=== PATIENT | female | born 1990 | race Caucasian/White ===

== ENCOUNTER 2017-02-03 00:49 | Emergency (ER) | payer OTHER ==
[~2017-02-03] VITALS: Ht 157.5 cm; Wt 95.3 kg
[2017-02-03] MEDS ORDERED: LORazepam 1MG TABLET PO ONE (01:30)
[2017-02-03] MEDS ORDERED: LORazepam 1MG TABLET ONE (01:31)
[2017-02-03 01:43] LABS: HEMATOCRIT 38.7 % (34.6-47.8); HEMOGLOBIN 12.1 g/dL (11.7-16.4); WHITE BLOOD COUNT 9.1 x10^3/uL (3.4-10)
[2017-02-03 01:52] LABS: BLOOD UREA NITROGEN 12 mg/dL (7-18)
[2017-02-03 01:53] LABS: ASPARTATE AMINO TRANSFERASE 17 U/L (15-37)
[2017-02-03 02:01] LABS: IS PT STATUS REG ER OR PRE ER? YES
[2017-02-03 02:42] VITALS: BP 97/63
== END 2017-02-03 02:44 | disposition home or self-care (01) ==
LOC: ED 02:38
DX: R07.89 Other chest pain (principal); R06.00 Dyspnea, unspecified; F41.1 Generalized anxiety disorder
CPT/HCPCS: 36415; 71020; 80053; 83690; 84484; 84703; 85025; 93005; 99285

== ENCOUNTER 2017-04-29 08:42 | Emergency (ER) | payer SELFPAY ==
[~2017-04-29] VITALS: Ht 160 cm; Wt 93.8 kg
[2017-04-29] MEDS ORDERED: ONDANSETRON 2MG/ML, 2ML IVPush ONE (09:30)
[2017-04-29] MEDS ORDERED: MORPHINE SULFATE 4 MG/ML, 1ML IVPush PRN (09:30)
[2017-04-29] MEDS ORDERED: SODIUM CHLORIDE 0.9% 1,000ML IVBOLUS ONE (09:30)
[2017-04-29] MEDS ORDERED: ONDANSETRON 2MG/ML, 2ML ONE (09:33)
[2017-04-29] MEDS ORDERED: morphine SULFATE 10 MG/ML, 1ML ONE (09:33)
[2017-04-29 09:43] LABS: HEMATOCRIT 40.1 % (34.6-47.8); HEMOGLOBIN 13.1 g/dL (11.7-16.4); WHITE BLOOD COUNT 8.3 x10^3/uL (3.4-10)
[2017-04-29 09:55] LABS: BLOOD UREA NITROGEN 13 mg/dL (7-18)
[2017-04-29 10:01] LABS: ASPARTATE AMINO TRANSFERASE 13 U/L (15-37)
[2017-04-29 10:02] LABS: GIANT PLATELETS 1+; LARGE PLATELETS 1+
[2017-04-29 13:13] VITALS: BP 99/60
== END 2017-04-29 13:17 | disposition home or self-care (01) ==
LOC: ED 10:31
DX: N30.90 Cystitis, unspecified without hematuria (principal); K59.00 Constipation, unspecified
CPT/HCPCS: 36415; 76700; 80053; 81001; 83690; 84703; 85025; 87077; 87086; 96361; 96374; 96375; 99285; J2405; J7030; 87186

== ENCOUNTER 2017-06-16 07:23 | Emergency (ER) | payer OTHER ==
[~2017-06-16] VITALS: Ht 157.5 cm; Wt 94.2 kg
[2017-06-16] MEDS ORDERED: ACETAMINOPHEN 325 MG TABLET ONE (10:13)
[2017-06-16 10:18] LABS: RAPID INFLUENZA A Negative (Negative); RAPID INFLUENZA B Negative (Negative)
[2017-06-16] MEDS ORDERED: ACETAMINOPHEN 325 MG TABLET PO ONE (10:30)
[2017-06-16 10:44] VITALS: BP 107/55
== END 2017-06-16 11:15 | disposition home or self-care (01) ==
LOC: ED 08:37
DX: J18.0 Bronchopneumonia, unspecified organism (principal)
CPT/HCPCS: 71046; 87081; 87400; 87880; 99285

== ENCOUNTER 2017-07-03 20:37 | Emergency (ER) | payer OTHER ==
[~2017-07-03] VITALS: Ht 157.5 cm; Wt 92.3 kg
[2017-07-03] MEDS ORDERED: SODIUM CHLORIDE FLUSH 10ML SYR IVF ONE (21:30)
[2017-07-03] MEDS ORDERED: SODIUM CHLORIDE 0.9% 1,000ML IVBOLUS ONE (21:30)
[2017-07-03 21:53] LABS: ALBUMIN 3.3 g/dL (3.4-5.0); ANION GAP 11 mmol/L (5-15); CALCIUM 8.4 mg/dL (8.5-10.1); CHLORIDE 107 mmol/L (98-107)
[2017-07-03 21:58] LABS: ALANINE AMINOTRANSFERASE 20 U/L (12-78); ALKALINE PHOSPHATASE 80 U/L (45-117); BASOPHILS # (AUTO) 0.03 x10^3/uL (0-0.1); BASOPHILS % (AUTO) 0 % (0-1); BILIRUBIN,TOTAL 0.3 mg/dL (0.2-1.0); EOSINOPHILS # (AUTO) 0.01 x10^3/uL (0-0.4); EOSINOPHILS % (AUTO) 0 % (1-7); LYMPHOCYTES # (AUTO) 0.93 x10^3/uL (1-3.4); LYMPHOCYTES % (AUTO) 15 % (22-44); MD SCAN; MEAN CORPUSCULAR HEMOGLOBIN 24.9 pg (27.0-34.8); MEAN CORPUSCULAR HGB CONC 32.1 g/dL (32.4-35.8); MEAN CORPUSCULAR VOLUME 77.7 fL (80-100); MEAN PLATELET VOLUME 12.7 fL (7.4-10.4); MONOCYTES # (AUTO) 0.39 x10^3/uL (0.2-0.8); MONOCYTES % (AUTO) 6 % (2-9); NEUTROPHILS # (AUTO) 4.84 x10^3/uL (1.8-6.8); NEUTROPHILS % (AUTO) 78 % (42-75); PLATELET COUNT 193 x10^3/uL (130-400); RED BLOOD COUNT 5.11 x10^6/uL (3.82-5.3); RED CELL DISTRIBUTION WIDTH 16.5 % (9.6-15.2)
[2017-07-03 22:13] VITALS: BP 112/81
[2017-07-03] MEDS ORDERED: OMNIPAQUE 350 MG/ML, 100ML BOTTLE ONE (23:08)
== END 2017-07-03 23:08 | disposition home or self-care (01) ==
LOC: ED 21:42
DX: R06.00 Dyspnea, unspecified (principal); R05 Cough
CPT/HCPCS: 36415; 71045; 71275; 80053; 83605; 84703; 85025; 87040; 93005; 96360; 99285; J7030; Q9967